=== PATIENT | female | born 1965 | race Caucasian/White ===

== ENCOUNTER 2020-04-13 14:42 | Observation (INO) | payer MEDICARE ==
[2020-04-13] MEDS ORDERED: ONDANSETRON 4 MG/2 ML VIAL IVP STA (15:21)
[2020-04-13] MEDS ORDERED: MORPHINE SULFATE 4 MG/ML SYRINGE IVP STA (15:22)
--- NOTE | 2020-04-13 15:25 | ED ---
Chest Pain HPI - General Chief Complaint: Chest Pain Stated Complaint: Face numbness Time Seen by Provider: 04/13/20 15:15 Source: patient, family Mode of arrival: wheelchair Limitations: no limitations - History of Present Illness Initial Comments: Amelia is a pleasant 55yo F with PMH of Rheumatoid arthritis who presents to the emergency department today via private vehicle for evaluation of chest pain that she describes as central chest radiating to her back with associated nausea and a single episode of nonbloody nonbilious emesis and an episode of numbness and tingling to her left face which resolved prior to arrival. Patient denies any history of hypertension hyperlipidemia or heart disease. She reports that the symptoms began today suddenly without provocation the discomfort has been persistent though the numbness and tingling in the left side of her face resolved. She never had any weakness in the hands or legs. - Related Data Home Medications Medication Instructions Recorded Confirmed Cholecalciferol [Vitamin D3 (25 50 mcg PO DAILY 04/13/20 04/13/20 Mcg = 1000 Iu)] Cyanocobalamin (Vitamin B-12) 1,000 mcg PO DAILY 04/13/20 04/13/20 [Vitamin B-12] Allergies Allergy/AdvReac Type Severity Reaction Status Date / Time aspirin Allergy Anaphylaxis Verified 04/13/20 17:14 NSAIDS (Non-Steroidal Allergy Anaphylaxis Verified 04/13/20 17:14 Anti-Inflamma Review of Systems ROS Statement: Those systems with pertinent positive or pertinent negative responses have been documented in the HPI. ROS Other: All systems not noted in ROS Statement are negative. EKG Findings - EKG Comments: EKG Findings:: EKG obtained due to complaint of chest pain and EKG obtained at 15:18 Rate 74, rhythm sinus with RBBB, RI 156 QRS 94 QTC [address] elevations or depressions no evidence of ischemia or infarction Past Medical History Past Medical History: No Reported History History of Any Multi-Drug Resistant Organisms: None Reported Past Surgical History: Adenoidectomy, Hernia Repair, Joint Replacement, Orthopedic Surgery, Tonsillectomy Past Psychological History: No Psychological Hx Reported Smoking Status: Never smoker Past Alcohol Use History: None Reported Past Drug Use History: None Reported General Exam Limitations: no limitations Course Vital Signs 04/13/20 04/13/20 04/13/20 14:54 15:23 16:27 Temperature 98.1 F Pulse Rate 77 69 Pulse Rate [ 71 Software Educator ] Respiratory 16 18 Rate Blood Pressure 160/72 175/91 O2 Sat by Pulse 98 100 Oximetry 04/13/20 17:50 Temperature Pulse Rate 64 Pulse Rate [ Software Educator ] Respiratory 18 Rate Blood Pressure 160/94 O2 Sat by Pulse 98 Oximetry Chest Pain MDM - MDM Patient was seen and evaluated history is obtained from the patient Labs and CT angiography of the chest ordered to evaluate for dissection EKG was nonischemic Labs relatively unremarkable mild transaminitis likely related to fatty liver Computed tomography scan with no acute findings Since chest pain improved after morphine, still complains of a dull headache Patient remains hypertensive clonidine was given for blood pressure management Given the patient's lack of outpatient follow-up, presentation with hypertension headache tingling of face and chest pain I do feel she warrants admission for hypertensive urgency. This plan was discussed with [place] emergency department physicians who accepts the admission Disposition Clinical Impression: Hypertensive urgency Disposition: ADMITTED IP TO THIS HOSP Condition: Stable Is patient prescribed a controlled substance at d/c from ED?: No Referrals: Siena Hogan MD [Primary Care Provider] - 1-2 days
[2020-04-13 15:49] LABS: Basophils # (A) 0.1 k/uL (0-0.2); Basophils % (A) 1 %; Eosinophils # (A) 0.4 k/uL (0-0.7); Eosinophils % (A) 4 %; HCT 44.9 % (34.0-46.0); HGB 15.2 gm/dL (11.4-16.0); Lymphocytes % (A) 22 %; MCH 28.6 pg (25.0-35.0); MCHC 33.8 g/dL (31.0-37.0); MCV 84.5 fL (80.0-100.0); Mean Platelet Volume 7.4; Monocytes # (A) 0.6 k/uL (0-1.0); Monocytes % (A) 7 %; Neutrophils # (A) 5.9 k/uL (1.3-7.7); Neutrophils % (A) 65 %; Platelet Count 263 k/uL (150-450); RBC 5.31 m/uL (3.80-5.40); RDW 12.5 % (11.5-15.5)
[2020-04-13 16:00] LABS: ALT 69 U/L (4-34); AST 40 U/L (14-36); African American GFR (CKD) >90 (>60 ml/min/1.73 sqM); Albumin 4.4 g/dL (3.5-5.0); Alkaline Phosphatase 67 U/L (38-126); Anion Gap 9 mmol/L; Blood Urea Nitrogen 18 mg/dL (7-17); Calcium 9.4 mg/dL (8.4-10.2); Carbon Dioxide 22 mmol/L (22-30); Chloride 105 mmol/L (98-107); Glucose 98 mg/dL (74-99); Non-African American GFR(CKD) >90 (>60 ml/min/1.73 sqM); Potassium 4.7 mmol/L (3.5-5.1); Sodium 136 mmol/L (137-145); Total Bilirubin 0.5 mg/dL (0.2-1.3); Total Protein 7.3 g/dL (6.3-8.2)
--- NOTE | 2020-04-13 16:11 | XR ---
EXAMINATION TYPE: XR chest 2V DATE OF EXAM: 04/13/2020 COMPARISON: NONE HISTORY: Chest pain TECHNIQUE: Frontal and lateral views of the chest are obtained. FINDINGS: There is no focal air space opacity, pleural effusion, or pneumothorax seen. The cardiac silhouette size is within normal limits. There are overlying leads. Some mild kyphosis present. The osseous structures are intact. IMPRESSION: No acute cardiopulmonary process.
[2020-04-13 16:19] LABS: INR 0.9 (<1.2); Partial Thromboplastin Time 22.1 sec (22.0-30.0); Prothrombin Time 10.2 sec (9.0-12.0)
--- NOTE | 2020-04-13 16:45 | CT ---
EXAMINATION TYPE: CT angio thor/abd pel aorta DATE OF EXAM: 04/13/2020 COMPARISON: Chest x-ray 04/13/2020 HISTORY: dissection, chest pain CT DLP: 2707.4 mGycm. Automated Exposure Control for Dose Reduction was Utilized. CONTRAST: CT scan of the thorax, abdomen and pelvis is performed without and with IV Contrast, patient injected with 100 mL of Isovue 370. Three-dimensional reconstructions performed on an alternate workstation. FINDINGS: LUNGS: The lungs are grossly clear, there is no concerning parenchymal mass or nodule identified. T here is no pleural effusion or pneumothorax seen. The tracheobronchial tree is patent. MEDIASTINUM: There are no greater than 1 cm hilar or mediastinal lymph nodes. No pericardial effusi on is seen. Mild coronary artery calcifications are present. OTHER: The aorta shows normal caliber and enhancement. There is some artifact at the level of the franco t of the aorta which limits evaluation. No evident aneurysm. There are 3 super aortic branch vessels. Celiac axis, superior mesenteric artery, renal arteries, inferior mesenteric artery are patent, comm on iliac, internal and external iliac arteries, common femoral, proximal deep and superficial femoral arteries are patent. LIVER/GB: Liver is enlarged and shows low-attenuation likely due to hepatic steatosis, gallbladder is unremarkable. PANCREAS: No significant abnormality is seen. SPLEEN: No significant abnormality is seen. ADRENALS: No significant abnormality is seen. KIDNEYS: No significant abnormality is seen. BOWEL: Diverticular change is noted especially in the sigmoid colon GENITAL ORGANS: No gross abnormality seen. LYMPH NODES: No greater than 1cm abdominal or pelvic lymph nodes are appreciated. OSSEOUS STRUCTURES: No significant abnormality is seen. OTHER: No significant additional abnormality is seen. IMPRESSION: No evident dissection
[2020-04-13] MEDS ORDERED: cloNIDine HCL 0.1 MG TAB PO STA (16:51)
[2020-04-13] MEDS ORDERED: NALOXONE 0.4 MG/ML 1 ML VIAL IV PRN (17:55)
[2020-04-13] MEDS: ACETAMINOPHEN TAB 325 MG TAB PO PRN (19:40)
--- NOTE | 2020-04-13 22:46 | P.HPIM ---
History of Present Illness H&P Date: 04/13/20 Chief Complaint: dizziness, left facial numbness, and chest pain 55 year old female with RA patient comes in due to sudden onset dizziness , then followed by left facial numbness and tingling, and central chest pain , felt like pressure, 7/10 in severity radiating to the back , with heavy breathing , no sweating, no nausea, no palpitation, this is not related to activity , and has never happened before,. it happened when she was relaxed and drawing. she denies any history of CAD. or heart problems. she recalls possible history of hypertension years ago when she was on steroids for RA, and had to take blood pressure medications briefly she otherwise denies feeling sick, denies any fever, chills, cough, nausea , vomiting, urinary changes, or changes in bowel habits, denies any bleeding she has history of blood clot after her right total knee replacement surgery she decided to come into the ED, due to persistence of her symptoms , she denies any other associated focal neuro deficits in the ED, she was found to have elevated blood pressure , blood work unremarkable , EKG NSR, no acute ST changes, she was given clonidine and admitted for further workup. she claims that her symptoms has resolved in the ED, however, she still feels the left side of the face has some residual numbness. Review of Systems Pertinent positives as noted in HPI. All other systems were reviewed and are negative Past Medical History Past Medical History: No Reported History Additional Past Medical History / Comment(s): RA History of Any Multi-Drug Resistant Organisms: None Reported Past Surgical History: Adenoidectomy, Hernia Repair, Joint Replacement, Orthopedic Surgery, Tonsillectomy Past Psychological History: No Psychological Hx Reported Smoking Status: Never smoker Past Alcohol Use History: None Reported Past Drug Use History: None Reported - Past Family History family Family Medical History: Coronary Artery Disease (CAD) Medications and Allergies Home Medications Medication Instructions Recorded Confirmed Type Cholecalciferol [Vitamin D3 (25 50 mcg PO DAILY 04/13/20 04/13/20 History Mcg = 1000 Iu)] Cyanocobalamin (Vitamin B-12) 1,000 mcg PO DAILY 04/13/20 04/13/20 History [Vitamin B-12] Allergies Allergy/AdvReac Type Severity Reaction Status Date / Time aspirin Allergy Anaphylaxis Verified 04/13/20 17:14 NSAIDS (Non-Steroidal Allergy Anaphylaxis Verified 04/13/20 17:14 Anti-Inflamma Physical Exam Vitals: Vital Signs Temp Pulse Pulse Resp BP Pulse Ox 04/13/20 17:50 64 18 160/94 98 04/13/20 16:27 69 18 175/91 100 04/13/20 15:23 71 04/13/20 14:54 98.1 F 77 16 160/72 98 Intake and Output 04/13/20 04/13/20 04/13/20 06:59 14:59 22:59 Other: Weight 142.882 kg Constitutional: No acute distress, conversant, pleasant, obese Eyes: Anicteric sclerae, moist conjunctiva, Pupils equal round reactive to light ENMT: NC/AT Oropharynx clear, no erythema, or exudates Neck: Supple, FROM, no masses, or JVD No carotid bruits No thyromegaly Lungs: Clear to auscultation Clear to percussion Normal respiratory effort, no accessory muscle use Cardiovascular: Heart regular in rate and rhythm, No murmurs, gallops, or rubs No peripheral edema Abdominal: Soft Nontender, no guarding, rebound or rigidity Abdomen moving with respiration Normoactive bowel sounds No hepatomegaly, No splenomegaly No palpable mass No abdominal wall hernia noted Skin: Normal temperature, tone, texture, turgor No induration No subcutaneous nodules No rash, lesions No ulcers Extremities: No digital cyanosis No clubbing Pedal pulses intact and symmetrical Radial pulses intact and symmetrical No calf tenderness Psychiatric: Alert and oriented to person, place and time Appropriate affect fair judgement Neuro Muscles Strength 4/5 in all 4 extremities Sensation to light touch grossly present throughout, except for some limited subjective numbess over left side of face Cranial nerves II-XII grossly intact, except for subjective numbness to light touch over left side of face Lymphatics: no palpable cervical or supraclavicular , or inguinal lymph nodes Results CBC & Chem 7: 04/13/20 15:39 04/13/20 15:39 Labs: Abnormal Lab Results - Last 24 Hours (Table) 04/13/20 Range/Units 15:39 Sodium 136 L (137-145) mmol/L BUN 18 H (7-17) mg/dL AST 40 H (14-36) U/L ALT 69 H (4-34) U/L Assessment and Plan Assessment: hypertensive emergency , with chest pain and left sided facial numbess rule out ACS, TIA history of RA plan Blood pressure control , start on norvasc daily monitor vital signs imaging and EKG and labs reviewed check renal artery US check Echocardiogram check carotid US consider MRI of the brain for persistent left facial numbness ASA, statin trend troponin check TSH, Lipid panel , A1C PT eval CODE STATUS:full code DVT prophylaxis: hepairn sc to start tomorrow Discussed with: Patient, ER Anticipated length of stay < than [address]: home A total of 75 minutes was spent on the care of this complex patient more than 50% of the time was spent in counseling and care coordination.
[2020-04-13] MEDS ORDERED: ATORVASTATIN 40 MG TAB PO SCH (23:00)
[2020-04-13] MEDS: CLOPIDOGREL 75 MG TAB PO SCH (23:26)
[2020-04-13] MEDS: amLODIPine 5 MG TAB PO SCH (23:26)
[2020-04-14] MEDS: ACETAMINOPHEN TAB 325 MG TAB PO PRN (07:58)
[2020-04-14] MEDS: CLOPIDOGREL 75 MG TAB PO SCH (07:59)
[2020-04-14] MEDS: amLODIPine 5 MG TAB PO SCH (07:59)
--- NOTE | 2020-04-14 08:29 | US ---
EXAMINATION TYPE: US carotid duplex BILAT DATE OF EXAM: 04/14/2020 COMPARISON: NONE CLINICAL HISTORY: 55-year-old female with possible TIA, Left side weakness TECHNIQUE: Carotid duplex ultrasound examination. Indirect Doppler criteria was utilized. FINDINGS: EXAM MEASUREMENTS: RIGHT: Peak Systolic Velocity (PSV) cm/sec ----- Right CCA: 73.5 ----- Right ICA: 106.4 ----- Right ECA: 72.4 ICA/CCA ratio: 1.4 RIGHT: End Diastole cm/sec ----- Right CCA: 23.0 ----- Right ICA: 27.3 ----- Right ECA: 0.0 LEFT: Peak Systolic Velocity (PSV) cm/sec ----- Left CCA: 62.7 ----- Left ICA: 98.2 ----- Left ECA: 86.7 ICA/CCA ratio: 1.6 LEFT: End Diastole cm/sec ----- Left CCA: 17.4 ----- Left ICA: 37.4 ----- Left ECA: 12.0 VERTEBRALS (direction of flow): Right Vertebral: Antegrade Left Vertebral: Antegrade Rhythm: Normal Grayscale images show mild atherosclerotic change of the right bifurcation and minimal on the left. Credentialing Analyst notes: No significant stenosis seen IMPRESSION: No hemodynamically significant internal carotid artery stenosis on either side. Criteria for Assigning % of Stenosis / Diameter reduction (Estimation based on the indirect measurements of the internal carotid artery velocities (ICA PSV). 1. Normal (no stenosis)=ICA PSV < 125 cm/s: ratio < 2.0: ICA EDV<40 cm/s. 2. Less than 50% stenosis=ICA PSV < 125 cm/s: ratio < 2.0: ICA EDV<40 cm/s. 3. 50 to 69% stenosis=ICA PSV of 125 to 230 cm/s: ration 2.0 ? 4.0: ICA EDV 40-100 cm/s. 4. Greater than 70% stenosis to near occlusion= ICA PSV > 230 cm/s: ratio > 4.0: ICA EDV > 100 cm/s. 5. Near occlusion= ICA PSV velocities may be low or undetectable: variable ratio and ICA EDV. 6. Total occlusion=unable to detect flow.
--- NOTE | 2020-04-14 09:09 | US ---
EXAMINATION TYPE: US renal artery duplex complete DATE OF EXAM: 04/14/2020 COMPARISON: NONE CLINICAL HISTORY: 55-year-old female new onset hypertension, evaluate for renal artery stenosis. New onset HTN TECHNIQUE: Grayscale imaging of the kidneys and duplex ultrasound examination of the renal arterial s te. FINDINGS: MEASUREMENTS: RENAL SIZE: Rt Kidney: 10.7 x 5.3 x 4.6 cm Lt Kidney: 10.2 x 6.5 x 5.3 cm No hydronephrosis on either side. Aortic peak systolic velocity 82.7 cm/s. RESISTANCE INDEX Right: 0.7 Left: 0.7 RA/AO RATIO (< 3.5 ) Right: 2.2 Left: 1.4 RA VELOCITY ( < 180 cm/s) Right: 182 Left: 117 Toggle Press Folder And Feeder notes:Limited study due to morbid obesity Toggle Press Folder And Feeder notes:Aorta and bilateral kidneys appeared within normal limits. Both renal arteries blake ve very limited visualization due to morbid obesity and overlying bowel gas. The proximal and mid freddie al arteries could not be visualized. Also, the proximal and distal arcuate arteries also could not be visualized. IMPRESSION: 1. No hydronephrosis. 2. Very limited exam due to patient's size and bowel gas. Only the distal aspect of the renal arterie s could be visualized. Velocities are mildly elevated on the right, though, the renal artery/aortic r atio is not increased. Consider renal artery CTA or MRA for more accurate assessment given current ex am limitations.
[2020-04-14 09:56] LABS: Hemoglobin A1C 6.2 % (4.0-6.0)
--- NOTE | 2020-04-14 10:45 | ECHOF ---
Referral Reason:? TIA MEASUREMENTS -------- HEIGHT: 170.2 cm WEIGHT: 142.9 kg BP: 137/76 RVIDd: 3.6 cm (< 3.3) IVSd: 1.3 cm (0.6 - 1.1) LVIDd: 3.8 cm (3.9 - 5.3) LVPWd: 1.3 cm (0.6 - 1.1) IVSs: 1.8 cm LVIDs: 3.1 cm LVPWs: 1.8 cm LA Diam: 3.7 cm (2.7 - 3.8) LAESV Index (A-L): 31.44 ml/m Ao Diam: 3.0 cm (2.0 - 3.7) AV Cusp: 2.1 cm (1.5 - 2.6) MV EXCURSION: 19.315 mm (> 18.000) MV EF SLOPE: 71 mm/s (70 - 150) EPSS: 0.5 cm MV E Jose Armando: 1.08 m/s MV DecT: 191 ms MV A Jose Armando: 0.96 m/s MV E/A Ratio: 1.13 AV maxP.46 mmHg AV meanP.32 mmHg RAP: 5.00 mmHg RVSP: 25.94 mmHg FINDINGS -------- Sinus rhythm. This was a technically adequate study. The left ventricular size is normal. There is mild concentric left ventricular hypertrophy. Overa ll left ventricular systolic function is normal with, an EF between 60 - 65 %. The right ventricle is mildly enlarged. LA is midly dilated 29-33ml/m2. The right atrium is normal in size. Aneurysmal Interatrial septum. There is mild aortic valve sclerosis. There is mild aortic stenosis present. Peak/mean gradient a cross the Aortic Valve is 22.46mmHg / 11.32mmHg. There is trace to mild mitral regurgitation. Mild tricuspid regurgitation present. Right ventricular systolic pressure is normal at < 35 mmHg. Trace/mild (physiologic) pulmonic regurgitation. The aortic root size is normal. Normal inferior vena cava with normal inspiratory collapse consistent with estimated right atrial pre ssure of 5 mmHg. The inferior vena cava is mildly dilated. There is no pericardial effusion. CONCLUSIONS -------- 1. The left ventricular size is normal. 2. There is mild concentric left ventricular hypertrophy. 3. Overall left ventricular systolic function is normal with, an EF between 60 - 65 %. 4. The right ventricle is mildly enlarged. 5. LA is midly dilated 29-33ml/m2. 6. Aneurysmal Interatrial septum. 7. There is mild aortic valve sclerosis. 8. There is mild aortic stenosis present. 9. Peak/mean gradient across the Aortic Valve is 22.46mmHg / 11.32mmHg. 10. There is trace to mild mitral regurgitation. 11. Mild tricuspid regurgitation present. 12. Trace/mild (physiologic) pulmonic regurgitation. 13. Normal inferior vena cava with normal inspiratory collapse consistent with estimated right atrial pressure of 5 mmHg. 14. There is no pericardial effusion. PAPER SUPERVISOR: ANN Villalta
[2020-04-14 10:49] LABS: African American GFR (CKD) 112.3 (60.0-200.0); Anion Gap 6.7 mmol/L (4.00-12.00); Calcium 9.8 mg/dL (8.7-10.3); Carbon Dioxide 29.3 mmol/L (21.6-31.8); Non-African American GFR(CKD) 96.9 (60.0-200.0); Potassium 4.7 mmol/L (3.5-5.5)
--- NOTE | 2020-04-14 11:41 | P.CRDCN ---
History of Present Illness Consult date: 04/14/20 History of present illness: CHIEF COMPLAINT: Chest pain, elevated blood pressure HISTORY OF PRESENT ILLNESS: This is a 55-year-old female with a past medical history significant for rheumatoid arthritis and former nicotine dependence patient reports a history of hypertension when she was on steroids for her rheumatoid arthritis but states she has been off of steroids for approximately one year. Patient does not follow with a coil wrapper. We have been asked to see the patient in consultation for elevated blood pressure and chest pain. Patient examined at the bedside. Patient states she was in her craft room yesterday when she began to feel dizzy. She states that she started walking around and thought that maybe her sugar was low so she made some chili. She reports shortly afterwards she threw up. She reports that she started having some pain in between her shoulder blades so she decided to go lay down in her room for a little while. She went back to her craft room and then noticed the left side of her face and her lips were numb and felt a pins and needle sensation. She reports some trouble speaking at that time as well. She reports she has some chronic weakness and numbness of her left upper extremity. She also reports having some chest pressure at the top part of her chest near her throat. She states the pain lasted for about 2 hours and then resolved. She reports having a stress test approximately 7 years ago which was negative to her recollection. She reports a family history of cardiac disease. She states her mom had a history of atrial ablation and had a pacemaker insertion. She reports her father had his first heart attack when he was in his 40s and from a second heart attack in his 60s. She reports her brother who is 13 months older than her also has a history of a TIA. DIAGNOSTICS: EKG reveals sinus rhythm with no signs of acute ischemia Carotid Doppler: Negative for significant stenosis Chest xray negative for acute process Laboratory data: WBC 9.0. Hemoglobin 15.2. Platelet count 263. Sodium 141. Potassium 4.7. BUN 14. Creatinine 0.7. Troponin negative 2. Current home cardiac medications include none Echocardiogram completed reveals ejection fraction 60-65%, mild aortic stenosis, trace to mild mitral regurgitation, and mild tricuspid regurgitation. REVIEW OF SYSTEMS: At the time of my exam: CONSTITUTIONAL: Denies fever or chills. HEENT: Denies blurred vision, vision changes, or eye pain. Denies hemoptysis CARDIOVASCULAR: Denies chest pain, orthopnea, PND or palpitations RESPIRATORY: No shortness of breath. GASTROINTESTINAL: Denies abdominal pain. Denies nausea or vomiting. HEMATOLOGIC: Denies bleeding disorders. GENITOURINARY: Denies any blood in urine. SKIN: Denies pruitis. Denies rash. PHYSICAL EXAM: VITAL SIGNS: Reviewed. GENERAL: Well-developed in no acute distress. HEENT: Head is normocephalic. Pupils are equal, round. Sclerae anicteric. Mucous membranes of the mouth are moist. Neck supple. No JVD or thyromegaly LUNGS: Respirations even and unlabored. Lungs essentially clear to auscultation bilaterally. HEART: Regular rate and rhythm. S1 and S2 heard. ABDOMEN: Soft. Nondistended. Nontender. EXTREMITIES: Normal range of motion. No clubbing or cyanosis. Peripheral pulses intact. No lower extremity edema NEUROLOGIC: Awake and alert. Oriented x 3. ASSESSMENT: Left sided facial numbness and tingling, suspected TIA Hypertension Hyperlipidemia Former nicotine dependence Rheumatoid arthritis Family history of premature coronary artery disease PLAN: Obtain 2 additional troponin levels Patient has been started on Lipitor and Norvasc per internal medicine. Monitor blood pressure. Await neurology evaluation. Patient has been started on Plavix per internal medicine as she is allergic to aspirin. Will plan for outpatient stress test in lieu of suspected TIA Further recommendations pending patient course Nurse practitioner note has been reviewed by physician. Signing provider agrees with the documented findings, assessment, and plan of care. Past Medical History Past Medical History: Hyperlipidemia Additional Past Medical History / Comment(s): RA, diverticulitis, right leg dvt History of Any Multi-Drug Resistant Organisms: None Reported Past Surgical History: Adenoidectomy, Hernia Repair, Joint Replacement, Orthopedic Surgery, Tonsillectomy, Tubal Ligation Additional Past Surgical History / Comment(s): bilateral total knee replacements, left ankle surgery, left elbow surgery. Past Anesthesia/Blood Transfusion Reactions: No Reported Reaction Past Psychological History: No Psychological Hx Reported Smoking Status: Never smoker Past Alcohol Use History: None Reported Past Drug Use History: None Reported - Past Family History Mother Family Medical History: AFIB, AICD/Pacemaker Father Family Medical History: Myocardial Infarction (RI) Additional Family Medical History / Comment(s): first RI at age 42 and 2nd RI 69 Brother(s) Family Medical History: CVA/TIA Additional Family Medical History / Comment(s): TIA at age 54. family Family Medical History: Coronary Artery Disease (CAD) Medications and Allergies Home Medications Medication Instructions Recorded Confirmed Type Cholecalciferol [Vitamin D3 (25 50 mcg PO DAILY 04/13/20 04/13/20 History Mcg = 1000 Iu)] Cyanocobalamin (Vitamin B-12) 1,000 mcg PO DAILY 04/13/20 04/13/20 History [Vitamin B-12] Allergies Allergy/AdvReac Type Severity Reaction Status Date / Time aspirin Allergy Anaphylaxis Verified 04/13/20 17:14 NSAIDS (Non-Steroidal Allergy Anaphylaxis Verified 04/13/20 17:14 Anti-Inflamma Physical Exam Vitals: Vital Signs Temp Pulse Pulse Pulse Resp BP BP 04/14/20 08:00 17 04/14/20 07:00 97.8 F 63 63 16 128/69 04/14/20 03:21 97.5 F L 65 18 137/76 04/13/20 22:36 98.2 F 68 18 131/79 04/13/20 20:20 80 17 04/13/20 19:34 70 18 139/89 04/13/20 17:50 64 18 160/94 04/13/20 16:27 69 18 175/91 04/13/20 15:23 71 04/13/20 14:54 98.1 F 77 16 160/72 Pulse Ox 04/14/20 08:00 04/14/20 07:00 97 04/14/20 03:21 97 04/13/20 22:36 95 04/13/20 20:20 04/13/20 19:34 98 04/13/20 17:50 98 04/13/20 16:27 100 04/13/20 15:23 04/13/20 14:54 98 Intake and Output 04/13/20 04/14/20 04/14/20 22:59 06:59 14:59 Other: # Voids 1 Weight 142.882 kg Results 04/13/20 15:39 04/14/20 05:34 Cardiac Enzymes 04/13/20 04/13/20 04/14/20 Range/Units 15:39 15:39 10:05 AST 40 H (14-36) U/L Troponin I <0.012 <0.012 (0.000-0.034) ng/mL Coagulation 04/13/20 Range/Units 15:39 PT 10.2 (9.0-12.0) sec APTT 22.1 (22.0-30.0) sec Lipids 04/14/20 Range/Units 05:34 Triglycerides 135.0 (0.0-149.0) mg/dL Cholesterol 244 H (0-200) mg/dL HDL Cholesterol 61.0 H (40.0-60.0) mg/dL Cholesterol/HDL Ratio 4.00 CBC 04/13/20 Range/Units 15:39 WBC 9.0 (3.8-10.6) k/uL RBC 5.31 (3.80-5.40) m/uL Hgb 15.2 (11.4-16.0) gm/dL Hct 44.9 (34.0-46.0) % Plt Count 263 (150-450) k/uL Comprehensive Metabolic Panel 04/13/20 04/14/20 Range/Units 15:39 05:34 Sodium 136 L 141 (137-145) mmol/L Potassium 4.7 4.7 (3.5-5.1) mmol/L Chloride 105 105 (98-107) mmol/L Carbon Dioxide 22 29.3 (22-30) mmol/L BUN 18 H 14.0 (7-17) mg/dL Creatinine 0.63 0.7 (0.52-1.04) mg/dL Glucose 98 100 (74-99) mg/dL Calcium 9.4 9.8 (8.4-10.2) mg/dL AST 40 H (14-36) U/L ALT 69 H (4-34) U/L Alkaline Phosphatase 67 (38-126) U/L Total Protein 7.3 (6.3-8.2) g/dL Albumin 4.4 (3.5-5.0) g/dL Current Medications Generic Name Dose Route Start Last Admin Trade Name Freq PRN Reason Stop Dose Admin Acetaminophen 650 mg 04/13/20 19:23 04/14/20 07:58 Acetaminophen Tab 325 Mg Tab PO 650 mg Q6HR PRN Administration Fever and/ or Pain Amlodipine Besylate 5 mg 04/13/20 21:30 02/24/21 07:59 Amlodipine 5 Mg Tab PO 5 mg DAILY SPENCER Administration Atorvastatin Calcium 40 mg 04/13/20 23:00 04/13/20 23:25 Atorvastatin 40 Mg Tab PO Not Given HS SPENCER Clopidogrel Bisulfate 75 mg 04/13/20 23:00 04/14/20 07:59 Clopidogrel 75 Mg Tab PO 75 mg DAILY SPENCER Administration Naloxone HCl 0.2 mg 04/13/20 17:55 Naloxone 0.4 Mg/Ml 1 Ml Vial IV Q2M PRN Opioid Reversal Intake and Output 04/13/20 04/14/20 04/14/20 22:59 06:59 14:59 Other: # Voids 1 Weight 142.882 kg 04/13/20 15:39 04/14/20 05:34
[2020-04-14 15:23] VITALS: BP 132/77; PULSE 67; RESP 16; TEMP 98
--- NOTE | 2020-04-14 15:39 | MR ---
MR brain without contrast HISTORY: Left facial numbness Multiplanar multisequence imaging obtained through the brain. No previous exam for correlation. Fast brain protocol utilized due to patient's claustrophobia. There is no restricted diffusion. No hemorrhage or hydrocephalus. There are normal vascular flow void s. Orbits show symmetric appearance. Periventricular confluent and scattered hyperintensities in the subcortical white matter numbering approximately 5 on inversion recovery T2-weighted sequences are no abdirahman. Cerebellopontine angles, corpus callosum and cervical medullary junction are normal. There is a partially empty sella. IMPRESSION: No evident cerebral vascular accident. Nonspecific white matter demyelination.
--- NOTE | 2020-04-14 17:22 | P.DS ---
Providers Date of admission: 04/13/20 17:55 Expected date of discharge: 04/14/20 Attending physician: Morris Negron Consults: 04/14/20 08:29 Consult Physician Routine Consulting Provider: Shanda Marcelo Consult Reason/Comments: chest pain Do you want consulting provider notified?: Yes 04/14/20 09:40 Consult Physician Routine Consulting Provider: Adolfo Zurita Consult Reason/Comments: TIA? Do you want consulting provider notified?: Yes Primary care physician: Siena Ohara [facility] Course: This is a 55-year-old female with past medical history significant for rheu matoid arthritis and nicotine dependence who presented to the emergency room with chest discomfort and left sided face numbness. She was found to be hypertensive on presentation. Patient was evaluated in the ER and CT angiogram of the chest showed no evidence of dissection. She was placed on observation. ACS ruled out. Twelve-lead EKG with no acute ischemic changes. Serial troponin negative 3 sets. Patient was seen and evaluated by cardiology and plan for cardiac stress testing as an outpatient. Given her facial numbness on presentation patient had workup for possible TIA. She had an MRI of the brain showing no acute findings. Echocardiogram of the heart showed preserved ejection fraction with no significant valvular abnormalities. Carotid Doppler was no hemodynamically significant stenosis. Patient has an ALLERGY to aspirin. Patient was counseled regarding lifestyle modification and exercise. Also risk factors modification. She was started on Lipitor 40 mg at bedtime. Norvasc 5 mg daily for blood pressure control. She was advised to follow up closely with her PCP. For further details about this hospitalization please refer to the electronic chart. Patient Condition at Discharge: Stable Plan - Discharge Summary New Discharge Prescriptions: New Atorvastatin [Lipitor] 40 mg PO HS #30 tab amLODIPine [Norvasc] 5 mg PO DAILY #30 tab Continue Cholecalciferol [Vitamin D3 (25 Mcg = 1000 Iu)] 50 mcg PO DAILY Cyanocobalamin (Vitamin B-12) [Vitamin B-12] 1,000 mcg PO DAILY Discharge Medication List Cholecalciferol [Vitamin D3 (25 Mcg = 1000 Iu)] 50 mcg PO DAILY 04/13/20 [History] Cyanocobalamin (Vitamin B-12) [Vitamin B-12] 1,000 mcg PO DAILY 04/13/20 [History] Atorvastatin [Lipitor] 40 mg PO HS #30 tab 04/14/20 [Rx] amLODIPine [Norvasc] 5 mg PO DAILY #30 tab 04/14/20 [Rx] Follow up Appointment(s)/Referral(s): Siena Hogan MD [Primary Care Provider] - 1-2 days Discharge Disposition: HOME SELF-CARE
--- NOTE | 2020-04-14 18:17 | P.PN ---
Progress Note - Text Progress Note Date: 04/14/20 Came to see the patient. Patient already been discharged.
== END 2020-04-14 17:46 | disposition home or self-care (01) ==
LOC: EC 14:42 → 6NMEDSUR 17:55
PROVIDERS: ADMIT Internal Medicine; ATTEND Internal Medicine
DX: I16.0 Hypertensive urgency (principal); R07.9 Chest pain, unspecified; I10 Essential (primary) hypertension; R20.0 Anesthesia of skin; M06.9 Rheumatoid arthritis, unspecified; E78.5 Hyperlipidemia, unspecified; K76.0 Fatty (change of) liver, not elsewhere classified; Z82.49 Family history of ischemic heart disease and other diseases of the circulatory system; Z86.718 Personal history of other venous thrombosis and embolism; Z87.891 Personal history of nicotine dependence; Z88.6 Allergy status to analgesic agent; Z96.653 Presence of artificial knee joint, bilateral; Z79.899 Other long term (current) drug therapy; Z20.822 Contact with and (suspected) exposure to COVID-19
CPT/HCPCS: 96374; 96375; 99285; 36415; 93005; 93306; 97162; 84439; 80061; 80053; 80048; 84443; 83735; 84484 ×2; 85025; 85610; 85730; 83036; 87635; 71046; 93975; 93880; 71275; 74174; 70551; G0378 ×2; J2270; J2405; Q9967